=== PATIENT | male | born 1950 | race Caucasian/White ===

== ENCOUNTER 2016-09-30 12:22 | Inpatient (IN) | payer MEDICARE, OTHER ==
[~2016-09-30] VITALS: Ht 170.2 cm; Wt 94.9 kg
[~2016-09-30 12:22] MED LIST: ASPI-825 PO; ATOR40TA28 PO; BENZ1TAB10 PO; CARV25 PO; FURO40 PO; LEVO500 PO; LISI-661 PO; RISP4 PO; SPIR50 PO
[2016-09-30] MEDS ORDERED: AMLO-512 PO (14:13)
[2016-09-30] MEDS ORDERED: CARV25 PO (14:13)
[2016-09-30 21:56] LABS: BASOPHILS # (AUTO) 0.05 K/uL (0.00-0.20); BASOPHILS % (AUTO) 0.6 % (0.0-2.0); EOSINOPHILS # (AUTO) 0.19 K/uL (0.00-0.70); EOSINOPHILS % (AUTO) 2.38 % (1.0-6.0); HEMATOCRIT 43.6 % (41-53); HEMOGLOBIN 14.6 g/dL (13.5-17.5); LYMPHOCYTES # (AUTO) 1.2 K/uL (1.0-4.8); LYMPHOCYTES % (AUTO) 15.7 % (22.0-44.0); MEAN CORPUSCULAR HEMOGLOBIN 27.9 pg (26.0-34.0); MEAN CORPUSCULAR HGB CONC 33.4 G/dL (31.0-37.0); MEAN CORPUSCULAR VOLUME 83 fL (80-100); MONOCYTES # (AUTO) 1.1 K/uL (0.1-1.0); MONOCYTES % (AUTO) 13.9 % (2.0-9.0); NEUTROPHILS # (AUTO) 5.3 K/uL (1.8-7.7); NEUTROPHILS % (AUTO) 67.4 % (40.0-70.0); PLATELET COUNT (AUTO) 214 K/uL (150-450); RED BLOOD CELL COUNT(AUTO) 5.22 MIL/uL (4.50-5.90); WHITE BLOOD COUNT (AUTO) 7.9 K/uL (4.5-11.0)
[2016-09-30] MEDS ORDERED: IPRATROPIUM BROMIDE 0.5 MG/2.5 ML NEB SOLUTION NEB ONE (22:00)
[2016-09-30] MEDS ORDERED: ASPIRIN 325 MG TABLET PO ONE (22:00)
[2016-09-30] MEDS ORDERED: ALBUTEROL SULFATE 5 MG/ML 20 ML NEB SOLN [BULK] NEB ONE (22:00)
[2016-09-30] MEDS ORDERED: FUROSEMIDE 40 MG/4 ML VIAL IVP ONE (22:00)
[2016-09-30 22:09] LABS: INR 1.1 (0.9-1.1); PROTHROMBIN TIME 11.2 SEC (9.4-11.6)
[2016-09-30 22:15] LABS: ANION GAP 7 mmol/L (8-16); CALCIUM, TOTAL 8.4 mg/dL (8.8-10.5); CARBON DIOXIDE 25 mmol/L (22-29); CHLORIDE 102 mmol/L (98-107); CREATININE 1.04 mg/dL (0.60-1.30); GLOMERULAR FILTR. RATE CALC > 60 mL/min (>60); POTASSIUM 3.3 mmol/L (3.5-5.1); SODIUM SERUM 134 mmol/L (136-145); UREA NITROGEN, BLOOD 11 mg/dL (7-18)
[2016-09-30 22:19] LABS: ALANINE AMINOTRANSFERASE 10 U/L (12-78); ALBUMIN 3.5 g/dL (3.4-5.0); ASPARTATE AMINOTRANSFERASE 15 U/L (15-37); BILIRUBIN,TOTAL 0.8 mg/dL (0.1-1.0); CREATINE KINASE, TOTAL 66 U/L (39-308); TOTAL PROTEIN, SERUM 7.6 g/dL (6.4-8.2)
[2016-09-30 22:20] LABS: B-TYPE NATRIURETIC PEPTIDE 342 pg/mL (0-100)
[2016-09-30] MEDS ORDERED: ACETAMINOPHEN 325 MG TABLET PO PRN (23:30)
[2016-09-30] MEDS ORDERED: 0.9% SODIUM CHLORIDE 10 ML SYRINGE IVP PRN (23:30)
[2016-09-30] MEDS ORDERED: ONDANSETRON HCL 4 MG/2 ML VIAL IVP PRN ×2 (23:30→23:45)
[2016-09-30] MEDS ORDERED: ALBUTEROL SULFATE 2.5 MG/0.5 ML NEB SOLUTION NEB PRN (23:45)
[2016-09-30] MEDS ORDERED: HEPARIN SODIUM,PORCINE 5,000 UNITS/ML VIAL SQ SCH (23:45)
[2016-09-30] MEDS ORDERED: IPRATROPIUM BROMIDE 0.5 MG/2.5 ML NEB SOLUTION NEB PRN (23:45)
[2016-09-30] MEDS ORDERED: MAGNESIUM HYDROXIDE SUSPENSION 30 ML UDCUP PO PRN (23:45)
[2016-09-30] MEDS ORDERED: BISACODYL 10 MG RECTAL RECTAL SUPPOSITORY PR PRN (23:45)
[2016-09-30] MEDS ORDERED: ZOLPIDEM TARTRATE 5 MG TABLET PO PRN (23:45)
[2016-10-01] MEDS ORDERED: HydrALAZINE HCL 25 MG TABLET PO PRN
[2016-10-01] MEDS ORDERED: POTASSIUM CHLORIDE 20 MEQ ER TABLET PO ONE
[2016-10-01] MEDS ORDERED: NITROGLYCERIN 2% (1 GM=INCH) PACKET TP ONE
[2016-10-01] MEDS: LEVOFLOXACIN 500 MG/D5% WATER 100 ML IV SCH (00:41)
[2016-10-01 05:16] LABS: APPEARANCE,URINE CLEAR (CLEAR); GLUCOSE, URINE (UA) NEGATIVE (NEGATIVE); KETONES,URINE NEGATIVE (NEGATIVE); LEUKOCYTE ESTERASE ,URINE NEGATIVE (NEGATIVE); OCCULT BLOOD,URINE NEGATIVE (NEGATIVE); PROTEIN,URINE NEGATIVE (NEGATIVE)
[2016-10-01 05:17] LABS: ADD UA MICROSCOPIC NO
[2016-10-01 06:49] LABS: BASOPHILS % (AUTO) 0.3 % (0.0-2.0); EOSINOPHILS % (AUTO) 1.9 % (1.0-6.0); HEMATOCRIT 43.2 % (41-53); LYMPHOCYTES % (AUTO) 12.4 % (22.0-44.0); MEAN CORPUSCULAR HEMOGLOBIN 27.2 pg (26.0-34.0); MEAN CORPUSCULAR HGB CONC 32.4 G/dL (31.0-37.0); MEAN CORPUSCULAR VOLUME 84 fL (80-100); MONOCYTES # (AUTO) 0.9 K/uL (0.1-1.0); MONOCYTES % (AUTO) 10.7 % (2.0-9.0); NEUTROPHILS # (AUTO) 6.1 K/uL (1.8-7.7); NEUTROPHILS % (AUTO) 74.7 % (40.0-70.0); PLATELET COUNT (AUTO) 212 K/uL (150-450); RED BLOOD CELL COUNT(AUTO) 5.14 MIL/uL (4.50-5.90); RED CELL DISTRIBUTION WIDTH 14.5 % (11.5-14.5); WHITE BLOOD COUNT (AUTO) 8.2 K/uL (4.5-11.0)
[2016-10-01 06:54] LABS: HEMOGLOBIN A1C 5.5 % (4.5-6.2)
[2016-10-01 07:22] LABS: ALANINE AMINOTRANSFERASE 8 U/L (12-78); ALBUMIN 3.3 g/dL (3.4-5.0); ANION GAP 10 mmol/L (8-16); ASPARTATE AMINOTRANSFERASE 11 U/L (15-37); BILIRUBIN,TOTAL 0.6 mg/dL (0.1-1.0); CALCIUM, TOTAL 8.3 mg/dL (8.8-10.5); CARBON DIOXIDE 26 mmol/L (22-29); CHLORIDE 104 mmol/L (98-107); CHOL/HDL RATIO 3.5 (4.2-7.3); CREATININE 0.88 mg/dL (0.60-1.30); GLOMERULAR FILTR. RATE CALC > 60 mL/min (>60); POTASSIUM 3.4 mmol/L (3.5-5.1); SODIUM SERUM 140 mmol/L (136-145); THYROID STIMULATING HORMONE 2.36 uIU/mL (0.36-3.74); TOTAL PROTEIN, SERUM 7.1 g/dL (6.4-8.2); UREA NITROGEN, BLOOD 10 mg/dL (7-18)
[2016-10-01 08:47] VITALS: BP 147/87
[2016-10-01] MEDS: PANTOPRAZOLE SODIUM 40 MG DR TABLET PO SCH (08:54)
[2016-10-01] MEDS: ASPIRIN 81 MG CHEWABLE TABLET PO SCH (08:55)
[2016-10-01] MEDS: FUROSEMIDE 20 MG/2 ML VIAL IVP SCH ×2 (08:55→22:43)
[2016-10-01] MEDS: CARVEDILOL 12.5 MG TABLET PO SCH ×2 (08:56→22:43)
[2016-10-01] MEDS: ATORVASTATIN CALCIUM 40 MG TABLET PO SCH (08:56)
[2016-10-01] MEDS: SPIRONOLACTONE 25 MG TABLET PO SCH (08:56)
[2016-10-01] MEDS: LISINOPRIL 10 MG TABLET PO SCH ×2 (08:57→22:43)
[2016-10-01] MEDS: HEPARIN SODIUM,PORCINE 5,000 UNITS/ML VIAL SQ SCH ×2 (08:57→23:26)
[2016-10-01 09:30] LABS: BASOPHILS # (AUTO) 0.01 K/uL (0.00-0.20); BASOPHILS % (AUTO) 0.2 % (0.0-2.0); EOSINOPHILS # (AUTO) 0.07 K/uL (0.00-0.70); EOSINOPHILS % (AUTO) 0.89 % (1.0-6.0); HEMATOCRIT 45.3 % (41-53); LYMPHOCYTES # (AUTO) 0.8 K/uL (1.0-4.8); LYMPHOCYTES % (AUTO) 10.7 % (22.0-44.0); MEAN CORPUSCULAR HEMOGLOBIN 27.7 pg (26.0-34.0); MEAN CORPUSCULAR HGB CONC 33.1 G/dL (31.0-37.0); MEAN CORPUSCULAR VOLUME 84 fL (80-100); MONOCYTES # (AUTO) 0.5 K/uL (0.1-1.0); NEUTROPHILS # (AUTO) 6.1 K/uL (1.8-7.7); NEUTROPHILS % (AUTO) 81.2 % (40.0-70.0); PLATELET COUNT (AUTO) 208 K/uL (150-450); RED BLOOD CELL COUNT(AUTO) 5.41 MIL/uL (4.50-5.90); RED CELL DISTRIBUTION WIDTH 14.8 % (11.5-14.5); WHITE BLOOD COUNT (AUTO) 7.5 K/uL (4.5-11.0)
[2016-10-01 09:43] LABS: ANION GAP 13 mmol/L (8-16); CALCIUM, TOTAL 8.5 mg/dL (8.8-10.5); CARBON DIOXIDE 25 mmol/L (22-29); CHLORIDE 103 mmol/L (98-107); CREATININE 1.01 mg/dL (0.60-1.30); GLOMERULAR FILTR. RATE CALC > 60 mL/min (>60); POTASSIUM 3.5 mmol/L (3.5-5.1); SODIUM SERUM 141 mmol/L (136-145); UREA NITROGEN, BLOOD 12 mg/dL (7-18)
[2016-10-01 17:50] VITALS: BP 125/89
[2016-10-01 22:15] VITALS: BP 104/56
[2016-10-01] MEDS: CHOLECALCIFEROL (VIT D3) 2,000 UNITS TABLET PO SCH (22:42)
[2016-10-02] VITALS (7 sets, daily range): BP systolic 94–117; BP diastolic 69–76
[2016-10-02] MEDS ORDERED: SODIUM CHLORIDE 0.9% 250 ML IV ONE (02:18)
[2016-10-02] MEDS: LEVOFLOXACIN 500 MG/D5% WATER 100 ML IV SCH (02:35)
[2016-10-02] MEDS ORDERED: INFLUENZA VIRUS VACCINE QVS 2016-17 (3YR+)/PF 60 MCG/0.5 ML SYRINGE IM ONE (06:00)
[2016-10-02] MEDS ORDERED: -PHARMACY VACCINE NOTE- MISC ONE ×2 (06:00)
[2016-10-02 06:42] LABS: BASOPHILS % (AUTO) 0.4 % (0.0-2.0); EOSINOPHILS % (AUTO) 3.6 % (1.0-6.0); HEMATOCRIT 43.8 % (41-53); HEMOGLOBIN 14.1 g/dL (13.5-17.5); LYMPHOCYTES # (AUTO) 1.2 K/uL (1.0-4.8); LYMPHOCYTES % (AUTO) 13.7 % (22.0-44.0); MEAN CORPUSCULAR HEMOGLOBIN 27.2 pg (26.0-34.0); MEAN CORPUSCULAR HGB CONC 32.1 G/dL (31.0-37.0); MEAN CORPUSCULAR VOLUME 85 fL (80-100); MONOCYTES # (AUTO) 0.9 K/uL (0.1-1.0); MONOCYTES % (AUTO) 10.6 % (2.0-9.0); NEUTROPHILS # (AUTO) 6.1 K/uL (1.8-7.7); NEUTROPHILS % (AUTO) 71.7 % (40.0-70.0); PLATELET COUNT (AUTO) 227 K/uL (150-450); RED BLOOD CELL COUNT(AUTO) 5.16 MIL/uL (4.50-5.90); RED CELL DISTRIBUTION WIDTH 14.6 % (11.5-14.5); WHITE BLOOD COUNT (AUTO) 8.6 K/uL (4.5-11.0)
[2016-10-02 07:00] LABS: ANION GAP 11 mmol/L (8-16); CALCIUM, TOTAL 8.5 mg/dL (8.8-10.5); CARBON DIOXIDE 25 mmol/L (22-29); CHLORIDE 104 mmol/L (98-107); CREATININE 1.08 mg/dL (0.60-1.30); GLOMERULAR FILTR. RATE CALC > 60 mL/min (>60); POTASSIUM 3.7 mmol/L (3.5-5.1); SODIUM SERUM 140 mmol/L (136-145); UREA NITROGEN, BLOOD 16 mg/dL (7-18)
[2016-10-02] MEDS: PANTOPRAZOLE SODIUM 40 MG DR TABLET PO SCH (08:09)
[2016-10-02] MEDS: ATORVASTATIN CALCIUM 40 MG TABLET PO SCH (08:09)
[2016-10-02] MEDS: CARVEDILOL 12.5 MG TABLET PO SCH ×2 (08:09→21:04)
[2016-10-02] MEDS: ASPIRIN 81 MG CHEWABLE TABLET PO SCH (08:09)
[2016-10-02] MEDS: CHOLECALCIFEROL (VIT D3) 2,000 UNITS TABLET PO SCH ×2 (08:10→21:04)
[2016-10-02] MEDS: SPIRONOLACTONE 25 MG TABLET PO SCH (08:10)
[2016-10-02] MEDS: HEPARIN SODIUM,PORCINE 5,000 UNITS/ML VIAL SQ SCH ×2 (08:13→21:05)
[2016-10-02] MEDS: FUROSEMIDE 20 MG/2 ML VIAL IVP SCH ×2 (08:13→21:04)
[2016-10-02] MEDS: LISINOPRIL 10 MG TABLET PO SCH ×2 (08:21→21:04)
[2016-10-02 08:23] LABS: B-TYPE NATRIURETIC PEPTIDE 192 pg/mL (0-100)
[2016-10-02] MEDS ORDERED: PALIPERIDONE PALMITATE 234 MG/1.5 ML SYRINGE IM SCH (12:00)
[2016-10-02] MEDS: BENZTROPINE MESYLATE 1 MG TABLET PO SCH (21:04)
[2016-10-03] VITALS (7 sets, daily range): BP systolic 90–108; BP diastolic 58–71
[2016-10-03 06:36] LABS: BASOPHILS # (AUTO) 0.04 K/uL (0.00-0.20); BASOPHILS % (AUTO) 0.5 % (0.0-2.0); EOSINOPHILS # (AUTO) 0.26 K/uL (0.00-0.70); EOSINOPHILS % (AUTO) 3.15 % (1.0-6.0); HEMATOCRIT 40.9 % (41-53); HEMOGLOBIN 13.6 g/dL (13.5-17.5); LYMPHOCYTES # (AUTO) 1.5 K/uL (1.0-4.8); LYMPHOCYTES % (AUTO) 18.4 % (22.0-44.0); MEAN CORPUSCULAR HEMOGLOBIN 27.8 pg (26.0-34.0); MEAN CORPUSCULAR HGB CONC 33.3 G/dL (31.0-37.0); MEAN CORPUSCULAR VOLUME 84 fL (80-100); MONOCYTES # (AUTO) 0.8 K/uL (0.1-1.0); NEUTROPHILS # (AUTO) 5.7 K/uL (1.8-7.7); PLATELET COUNT (AUTO) 229 K/uL (150-450); RED CELL DISTRIBUTION WIDTH 14.9 % (11.5-14.5); WHITE BLOOD COUNT (AUTO) 8.3 K/uL (4.5-11.0)
[2016-10-03 06:51] LABS: CALCIUM, TOTAL 8.7 mg/dL (8.8-10.5); CREATININE 1.28 mg/dL (0.60-1.30); POTASSIUM 3.5 mmol/L (3.5-5.1)
[2016-10-03] MEDS: LISINOPRIL 10 MG TABLET PO SCH ×2 (09:00→21:00)
[2016-10-03] MEDS: CARVEDILOL 12.5 MG TABLET PO SCH (09:00)
[2016-10-03] MEDS: CHOLECALCIFEROL (VIT D3) 2,000 UNITS TABLET PO SCH ×2 (09:02→21:39)
[2016-10-03] MEDS: FUROSEMIDE 20 MG/2 ML VIAL IVP SCH (09:03)
[2016-10-03] MEDS: PANTOPRAZOLE SODIUM 40 MG DR TABLET PO SCH (09:03)
[2016-10-03] MEDS: ASPIRIN 81 MG CHEWABLE TABLET PO SCH (09:03)
[2016-10-03] MEDS: BENZTROPINE MESYLATE 1 MG TABLET PO SCH ×2 (09:03→21:39)
[2016-10-03] MEDS: SPIRONOLACTONE 25 MG TABLET PO SCH (09:03)
[2016-10-03] MEDS: ATORVASTATIN CALCIUM 40 MG TABLET PO SCH (09:03)
[2016-10-03] MEDS: HEPARIN SODIUM,PORCINE 5,000 UNITS/ML VIAL SQ SCH ×2 (09:04→21:39)
[2016-10-03] MEDS: CARVEDILOL 6.25 MG TABLET PO SCH (21:00)
[2016-10-03] MEDS: FUROSEMIDE 20 MG TABLET PO SCH (21:00)
[2016-10-03] MEDS: OXYGEN THERAPY IH SCH (21:36)
[2016-10-04 05:45] VITALS: BP 126/64
[2016-10-04] MEDS: HEPARIN SODIUM,PORCINE 5,000 UNITS/ML VIAL SQ SCH (08:16)
[2016-10-04] MEDS: BENZTROPINE MESYLATE 1 MG TABLET PO SCH (08:16)
[2016-10-04] MEDS: ATORVASTATIN CALCIUM 40 MG TABLET PO SCH (08:16)
[2016-10-04] MEDS: CHOLECALCIFEROL (VIT D3) 2,000 UNITS TABLET PO SCH (08:17)
[2016-10-04] MEDS: PANTOPRAZOLE SODIUM 40 MG DR TABLET PO SCH (08:17)
[2016-10-04] MEDS: ASPIRIN 81 MG CHEWABLE TABLET PO SCH (08:17)
[2016-10-04] MEDS: CARVEDILOL 6.25 MG TABLET PO SCH (08:20)
[2016-10-04] MEDS: OXYGEN THERAPY IH SCH (08:21)
[2016-10-04 08:27] VITALS: BP 112/62
[2016-10-04] MEDS: LISINOPRIL 10 MG TABLET PO SCH (08:29)
[2016-10-04] MEDS: SPIRONOLACTONE 25 MG TABLET PO SCH (09:00)
[2016-10-04] MEDS: FUROSEMIDE 20 MG TABLET PO SCH (09:00)
[2016-10-04 11:07] VITALS: BP 99/64
[2016-10-04] MEDS ORDERED: CARVEDILOL 3.125 MG TABLET PO SCH (21:00)
[2016-10-05] MEDS ORDERED: LISINOPRIL 10 MG TABLET PO SCH (09:00)
== END 2016-10-04 15:25 | DRG 291 ==
LOC: EMS 12:24 → AHU 10-01 07:24 → 5N 10-01 23:15
PROVIDERS: ADMIT Internal Medicine Geriatric Medicine; ATTEND Internal Medicine Geriatric Medicine
PROC: 4B02XTZ Measurement of Cardiac Defibrillator, External Approach (ICD-10-PCS; principal; 2016-10-02)
PROC: 3E0234Z Introduction of Serum, Toxoid and Vaccine into Muscle, Percutaneous Approach (ICD-10-PCS; 2016-10-02)
DX: I13.0 Hypertensive heart and chronic kidney disease with heart failure and stage 1 through stage 4 chronic kidney disease, or unspecified chronic kidney disease (principal); I50.23 Acute on chronic systolic (congestive) heart failure; F20.0 Paranoid schizophrenia; I42.9 Cardiomyopathy, unspecified; E66.01 Morbid (severe) obesity due to excess calories; N18.9 Chronic kidney disease, unspecified; D35.01 Benign neoplasm of right adrenal gland; E78.00 Pure hypercholesterolemia, unspecified; E87.6 Hypokalemia; E55.9 Vitamin D deficiency, unspecified; E78.5 Hyperlipidemia, unspecified; F31.9 Bipolar disorder, unspecified; I25.10 Atherosclerotic heart disease of native coronary artery without angina pectoris; K40.90 Unilateral inguinal hernia, without obstruction or gangrene, not specified as recurrent; K57.30 Diverticulosis of large intestine without perforation or abscess without bleeding; N40.0 Benign prostatic hyperplasia without lower urinary tract symptoms; Z79.899 Other long term (current) drug therapy; Z79.82 Long term (current) use of aspirin; Z95.810 Presence of automatic (implantable) cardiac defibrillator; Z91.19 Patient's noncompliance with other medical treatment and regimen; Z68.32 Body mass index [BMI] 32.0-32.9, adult; Z23 Encounter for immunization
CPT/HCPCS: 71250; 74176; 82306; 83036; 83735; 84145; 84439; 84443; 90471; 93005; 93306; 96374; 99285; J1644; J1940; J1956; J7050

== ENCOUNTER 2019-08-27 19:29 | Inpatient (IN) | payer MEDICARE, OTHER ==
[~2019-08-27] VITALS: Ht 165.1 cm; Wt 89.5 kg
[~2019-08-27 19:29] MED LIST changes: +AMLO10TA7 PO; -BENZ1TAB10 PO; -LEVO500 PO; -RISP4 PO
[2019-08-27] MEDS ORDERED: RISP2 PO (20:07)
[2019-08-27] MEDS ORDERED: FURO40 PO (20:07)
[2019-08-27] MEDS ORDERED: APIX5TAB PO (20:07)
[2019-08-27] MEDS ORDERED: CARV6 PO (20:07)
[2019-08-27] MEDS ORDERED: LISI-660 PO (20:07)
[2019-08-27 20:22] LABS: BASOPHILS % (AUTO) 0.8 % (0.0-2.0); EOSINOPHILS % (AUTO) 0.9 % (1.0-6.0); HEMATOCRIT 39.8 % (41-53); HEMOGLOBIN 12.7 g/dL (13.5-17.5); LYMPHOCYTES % (AUTO) 13.2 % (22.0-44.0); MEAN CORPUSCULAR HEMOGLOBIN 24.8 pg (26.0-34.0); MEAN CORPUSCULAR VOLUME 78 fL (80-100); MONOCYTES # (AUTO) 0.8 K/uL (0.1-1.0); MONOCYTES % (AUTO) 10.6 % (2.0-9.0); NEUTROPHILS # (AUTO) 5.9 K/uL (1.8-7.7); NEUTROPHILS % (AUTO) 74.5 % (40.0-70.0); PLATELET COUNT (AUTO) 268 K/uL (150-450); RED BLOOD CELL COUNT(AUTO) 5.14 MIL/uL (4.50-5.90)
[2019-08-27 20:31] LABS: ANION GAP 10 mmol/L (8-16); CALCIUM, TOTAL 8.8 mg/dL (8.8-10.5); CARBON DIOXIDE 26 mmol/L (22-29); CHLORIDE 105 mmol/L (98-107); GLOMERULAR FILTR. RATE CALC > 60 mL/min (>60); GLUCOSE,RANDOM 96 mg/dL (70-110); POTASSIUM 4.1 mmol/L (3.5-5.1); SODIUM SERUM 141 mmol/L (136-145); UREA NITROGEN, BLOOD 21 mg/dL (7-18)
[2019-08-27 20:37] LABS: ALANINE AMINOTRANSFERASE 60 U/L (12-78); ALBUMIN 3.5 g/dL (3.4-5.0); ALKALINE PHOSPHATASE 77 U/L (46-116); ASPARTATE AMINOTRANSFERASE 44 U/L (15-37); TOTAL PROTEIN, SERUM 7.3 g/dL (6.4-8.2)
[2019-08-27 20:39] LABS: B-TYPE NATRIURETIC PEPTIDE 1800 pg/mL (0-100)
[2019-08-27] MEDS ORDERED: 0.9% SODIUM CHLORIDE 5 ML NEB SOLUTION NEB ONE (22:37)
[2019-08-27] MEDS ORDERED: MAGNESIUM SULFATE 2 GM/WATER 50 ML IV ONE (22:45)
[2019-08-27] MEDS ORDERED: MethylPREDNISolone SOD SUCC 125 MG/2 ML VIAL IVP ONE (22:45)
[2019-08-27] MEDS ORDERED: ALBUTEROL SULFATE 5 MG/ML 20 ML NEB SOLN [BULK] NEB ONE (22:45)
[2019-08-27 22:49] LABS: CREATINE KINASE, TOTAL ONLY 200 U/L (39-308); LIPASE 54 U/L (73-393)
[2019-08-27 22:54] LABS: INR 1.3 (0.9-1.1); PROTHROMBIN TIME 13.4 SEC (9.4-11.6)
[2019-08-27] MEDS ORDERED: FUROSEMIDE 40 MG/4 ML VIAL IVP ONE (23:15)
[2019-08-28 00:12] LABS: INFLUENZA TYPE A NEGATIVE FOR TYPE A (NEGATIVE); INFLUENZA TYPE B NEGATIVE FOR TYPE B (NEGATIVE)
[2019-08-28 01:48] VITALS: BP 129/95
[2019-08-28 04:20] VITALS: BP_SYST 112; BP_SYST 130; BP_DIAS 56; BP_DIAS 90
[2019-08-28] MEDS ORDERED: ALBUTEROL SULFATE 2.5 MG/0.5 ML NEB SOLUTION NEB PRN (04:30)
[2019-08-28] MEDS ORDERED: PNEUMOCOCCAL VACCINE POLYVALENT 0.5 ML VIAL [PPSV23] IM ONE (04:30)
[2019-08-28] MEDS ORDERED: INFLUENZA VIRUS VACCINE QVS 2019-20 (3YR+)/PF 60 MCG/0.5 ML SYRINGE IM ONE (04:30)
[2019-08-28] MEDS ORDERED: 0.9% SODIUM CHLORIDE 10 ML SYRINGE IVP PRN (04:30)
[2019-08-28] MEDS ORDERED: ACETAMINOPHEN 325 MG TABLET PO PRN (04:30)
[2019-08-28] MEDS ORDERED: OxyCODONE HCL/ACETAMINOPHEN 5-325 MG TABLET PO PRN (04:30)
[2019-08-28] MEDS ORDERED: MAGNESIUM HYDROXIDE SUSPENSION 30 ML UDCUP PO PRN (04:30)
[2019-08-28] MEDS ORDERED: ONDANSETRON HCL 4 MG/2 ML VIAL IVP PRN (04:30)
[2019-08-28] MEDS: OxyCODONE HCL/ACETAMINOPHEN 5-325 MG TABLET PO PRN (05:06)
[2019-08-28 07:45] LABS: ANION GAP 10 mmol/L (8-16); CALCIUM, TOTAL 8.2 mg/dL (8.8-10.5); CARBON DIOXIDE 26 mmol/L (22-29); CHLORIDE 103 mmol/L (98-107); CREATININE 0.87 mg/dL (0.60-1.30); GLOMERULAR FILTR. RATE CALC > 60 mL/min (>60); GLUCOSE,RANDOM 152 mg/dL (70-110); POTASSIUM 3.4 mmol/L (3.5-5.1); SODIUM SERUM 139 mmol/L (136-145); UREA NITROGEN, BLOOD 16 mg/dL (7-18)
[2019-08-28] MEDS: ALBUTEROL SULFATE 2.5 MG/0.5 ML NEB SOLUTION NEB SCH ×3 (07:55→20:05)
[2019-08-28] MEDS: IPRATROPIUM BROMIDE 0.5 MG/2.5 ML NEB SOLUTION NEB SCH ×3 (07:55→20:05)
[2019-08-28 08:09] VITALS: BP 143/97
[2019-08-28] MEDS: APIXABAN 5 MG TABLET PO SCH ×2 (08:57→22:36)
[2019-08-28] MEDS: RisperiDONE 2 MG TABLET PO SCH (08:57)
[2019-08-28] MEDS: FAMOTIDINE 10 MG/ML 2 ML VIAL IVP SCH (08:57)
[2019-08-28] MEDS: DOCUSATE SODIUM 100 MG CAPSULE PO SCH ×2 (08:57→22:36)
[2019-08-28] MEDS: FUROSEMIDE 40 MG/4 ML VIAL IVP SCH ×2 (08:57→22:35)
[2019-08-28] MEDS: CARVEDILOL 6.25 MG TABLET PO SCH (08:57)
[2019-08-28] MEDS: MethylPREDNISolone SOD SUCC 40 MG/ML VIAL IVP SCH ×2 (08:57→22:36)
[2019-08-28] MEDS: LISINOPRIL 5 MG TABLET PO SCH (08:58)
[2019-08-28] MEDS ORDERED: POTASSIUM CHLORIDE 20 MEQ ER TABLET PO ONE (10:45)
[2019-08-28 11:28] VITALS: BP 127/77
[2019-08-28 16:19] VITALS: BP 109/71
[2019-08-28 19:40] VITALS: BP 114/72
[2019-08-29] VITALS (7 sets, daily range): BP systolic 110–126; BP diastolic 54–75
[2019-08-29] MEDS: ALBUTEROL SULFATE 2.5 MG/0.5 ML NEB SOLUTION NEB SCH ×4 (02:07→19:38)
[2019-08-29] MEDS: IPRATROPIUM BROMIDE 0.5 MG/2.5 ML NEB SOLUTION NEB SCH ×4 (02:07→19:38)
[2019-08-29 07:18] LABS: BASOPHILS % (AUTO) 0.1 % (0.0-2.0); EOSINOPHILS % (AUTO) 0 % (1.0-6.0); HEMOGLOBIN 12.4 g/dL (13.5-17.5); LYMPHOCYTES # (AUTO) 0.3 K/uL (1.0-4.8); LYMPHOCYTES % (AUTO) 3.1 % (22.0-44.0); MEAN CORPUSCULAR HEMOGLOBIN 24.7 pg (26.0-34.0); MEAN CORPUSCULAR HGB CONC 32.5 G/dL (31.0-37.0); MEAN CORPUSCULAR VOLUME 76 fL (80-100); MONOCYTES # (AUTO) 0.3 K/uL (0.1-1.0); MONOCYTES % (AUTO) 2.9 % (2.0-9.0); NEUTROPHILS # (AUTO) 8.8 K/uL (1.8-7.7); PLATELET COUNT (AUTO) 256 K/uL (150-450); RED CELL DISTRIBUTION WIDTH 16.6 % (11.5-14.5)
[2019-08-29 07:19] LABS: NEUTROPHILS % (AUTO) 93.9 % (40.0-70.0)
[2019-08-29 07:29] LABS: ANION GAP 10 mmol/L (8-16); CALCIUM, TOTAL 8.4 mg/dL (8.8-10.5); CARBON DIOXIDE 27 mmol/L (22-29); CHLORIDE 103 mmol/L (98-107); CREATININE 0.92 mg/dL (0.60-1.30); GLOMERULAR FILTR. RATE CALC > 60 mL/min (>60); GLUCOSE,RANDOM 123 mg/dL (70-110); POTASSIUM 3.9 mmol/L (3.5-5.1); SODIUM SERUM 140 mmol/L (136-145); UREA NITROGEN, BLOOD 26 mg/dL (7-18)
[2019-08-29] MEDS: MethylPREDNISolone SOD SUCC 40 MG/ML VIAL IVP SCH ×2 (08:05→21:16)
[2019-08-29] MEDS: FAMOTIDINE 10 MG/ML 2 ML VIAL IVP SCH (08:05)
[2019-08-29] MEDS: FUROSEMIDE 40 MG/4 ML VIAL IVP SCH (08:05)
[2019-08-29] MEDS: APIXABAN 5 MG TABLET PO SCH ×2 (08:06→21:16)
[2019-08-29] MEDS: LISINOPRIL 5 MG TABLET PO SCH (08:07)
[2019-08-29] MEDS: CARVEDILOL 6.25 MG TABLET PO SCH (08:07)
[2019-08-29] MEDS: RisperiDONE 2 MG TABLET PO SCH (08:07)
[2019-08-29] MEDS: DOCUSATE SODIUM 100 MG CAPSULE PO SCH ×2 (08:07→21:16)
[2019-08-30] VITALS (7 sets, daily range): BP systolic 106–136; BP diastolic 68–84
[2019-08-30] MEDS ORDERED: MORPHINE SULFATE 2 MG/ML SYRINGE IVP PRN (00:15)
[2019-08-30] MEDS ORDERED: DIGOXIN 250 MCG/ML 2 ML AMP IVP ONE (00:15)
[2019-08-30] MEDS: ALBUTEROL SULFATE 2.5 MG/0.5 ML NEB SOLUTION NEB SCH ×4 (02:16→21:31)
[2019-08-30] MEDS: IPRATROPIUM BROMIDE 0.5 MG/2.5 ML NEB SOLUTION NEB SCH ×4 (02:16→21:31)
[2019-08-30 06:38] LABS: BASOPHILS % (AUTO) 0.1 % (0.0-2.0); EOSINOPHILS % (AUTO) 0 % (1.0-6.0); HEMATOCRIT 37.8 % (41-53); HEMOGLOBIN 12.6 g/dL (13.5-17.5); LYMPHOCYTES # (AUTO) 0.3 K/uL (1.0-4.8); LYMPHOCYTES % (AUTO) 2.8 % (22.0-44.0); MEAN CORPUSCULAR HEMOGLOBIN 25.3 pg (26.0-34.0); MEAN CORPUSCULAR HGB CONC 33.3 G/dL (31.0-37.0); MEAN CORPUSCULAR VOLUME 76 fL (80-100); MONOCYTES # (AUTO) 0.3 K/uL (0.1-1.0); NEUTROPHILS # (AUTO) 9.5 K/uL (1.8-7.7); PLATELET COUNT (AUTO) 258 K/uL (150-450); RED BLOOD CELL COUNT(AUTO) 4.97 MIL/uL (4.50-5.90); RED CELL DISTRIBUTION WIDTH 16.9 % (11.5-14.5)
[2019-08-30 06:52] LABS: ANION GAP 9 mmol/L (8-16); CALCIUM, TOTAL 8.5 mg/dL (8.8-10.5); CARBON DIOXIDE 26 mmol/L (22-29); CHLORIDE 102 mmol/L (98-107); CREATININE 0.82 mg/dL (0.60-1.30); GLOMERULAR FILTR. RATE CALC > 60 mL/min (>60); GLUCOSE,RANDOM 123 mg/dL (70-110); SODIUM SERUM 137 mmol/L (136-145); UREA NITROGEN, BLOOD 29 mg/dL (7-18)
[2019-08-30 06:55] LABS: NEUTROPHILS % (AUTO) 94.1 % (40.0-70.0)
[2019-08-30] MEDS: LISINOPRIL 5 MG TABLET PO SCH (08:18)
[2019-08-30] MEDS: APIXABAN 5 MG TABLET PO SCH ×2 (08:18→20:49)
[2019-08-30] MEDS: CARVEDILOL 6.25 MG TABLET PO SCH (08:18)
[2019-08-30] MEDS: RisperiDONE 2 MG TABLET PO SCH (08:18)
[2019-08-30] MEDS: MethylPREDNISolone SOD SUCC 40 MG/ML VIAL IVP SCH ×2 (08:19→20:49)
[2019-08-30] MEDS: FUROSEMIDE 40 MG TABLET PO SCH (08:19)
[2019-08-30] MEDS: FAMOTIDINE 10 MG/ML 2 ML VIAL IVP SCH (08:19)
[2019-08-30] MEDS: DOCUSATE SODIUM 100 MG CAPSULE PO SCH ×2 (08:20→20:48)
[2019-08-31] MEDS: ALBUTEROL SULFATE 2.5 MG/0.5 ML NEB SOLUTION NEB SCH ×4 (02:53→19:51)
[2019-08-31] MEDS: IPRATROPIUM BROMIDE 0.5 MG/2.5 ML NEB SOLUTION NEB SCH ×4 (02:54→19:51)
[2019-08-31 04:30] VITALS: BP 123/83
[2019-08-31 07:06] LABS: EOSINOPHILS % (AUTO) 0 % (1.0-6.0); HEMATOCRIT 37.7 % (41-53); HEMOGLOBIN 12.3 g/dL (13.5-17.5); LYMPHOCYTES # (AUTO) 0.3 K/uL (1.0-4.8); LYMPHOCYTES % (AUTO) 3.6 % (22.0-44.0); MEAN CORPUSCULAR HEMOGLOBIN 24.6 pg (26.0-34.0); MEAN CORPUSCULAR HGB CONC 32.5 G/dL (31.0-37.0); MEAN CORPUSCULAR VOLUME 76 fL (80-100); MONOCYTES # (AUTO) 0.4 K/uL (0.1-1.0); NEUTROPHILS # (AUTO) 7.9 K/uL (1.8-7.7); PLATELET COUNT (AUTO) 235 K/uL (150-450); RED BLOOD CELL COUNT(AUTO) 4.99 MIL/uL (4.50-5.90); RED CELL DISTRIBUTION WIDTH 16.8 % (11.5-14.5)
[2019-08-31 07:07] LABS: NEUTROPHILS % (AUTO) 91.4 % (40.0-70.0)
[2019-08-31 07:26] LABS: ANION GAP 6 mmol/L (8-16); CALCIUM, TOTAL 8.2 mg/dL (8.8-10.5); CARBON DIOXIDE 28 mmol/L (22-29); CHLORIDE 102 mmol/L (98-107); CREATININE 0.93 mg/dL (0.60-1.30); GLOMERULAR FILTR. RATE CALC > 60 mL/min (>60); GLUCOSE,RANDOM 116 mg/dL (70-110); POTASSIUM 4.4 mmol/L (3.5-5.1); SODIUM SERUM 136 mmol/L (136-145); UREA NITROGEN, BLOOD 14 mg/dL (7-18)
[2019-08-31 07:31] VITALS: BP 124/93
[2019-08-31] MEDS: DOCUSATE SODIUM 100 MG CAPSULE PO SCH ×2 (09:00→21:47)
[2019-08-31] MEDS: MethylPREDNISolone SOD SUCC 40 MG/ML VIAL IVP SCH (09:31)
[2019-08-31] MEDS: METOPROLOL SUCCINATE 50 MG ER TABLET PO SCH (09:31)
[2019-08-31] MEDS: FAMOTIDINE 10 MG/ML 2 ML VIAL IVP SCH (09:32)
[2019-08-31] MEDS: APIXABAN 5 MG TABLET PO SCH ×2 (09:32→21:47)
[2019-08-31] MEDS: RisperiDONE 2 MG TABLET PO SCH (09:32)
[2019-08-31] MEDS: FUROSEMIDE 40 MG TABLET PO SCH (09:32)
[2019-08-31] MEDS: LISINOPRIL 5 MG TABLET PO SCH (09:32)
[2019-08-31 11:25] VITALS: BP 112/78
[2019-08-31] MEDS ORDERED: METO-558 PO (12:41)
[2019-08-31] MEDS ORDERED: CALCIUM CARBONATE 500 MG CHEWABLE TABLET CHEW PRN (15:30)
[2019-08-31 19:30] VITALS: BP 111/69
[2019-09-01] VITALS (7 sets, daily range): BP systolic 104–110; BP diastolic 58–79
[2019-09-01] MEDS: ALBUTEROL SULFATE 2.5 MG/0.5 ML NEB SOLUTION NEB SCH ×4 (02:23→19:59)
[2019-09-01] MEDS: IPRATROPIUM BROMIDE 0.5 MG/2.5 ML NEB SOLUTION NEB SCH ×4 (02:23→19:59)
[2019-09-01] MEDS: DOCUSATE SODIUM 100 MG CAPSULE PO SCH ×2 (09:00→20:47)
[2019-09-01] MEDS: OxyCODONE HCL/ACETAMINOPHEN 5-325 MG TABLET PO PRN ×2 (09:39→23:25)
[2019-09-01] MEDS: RisperiDONE 2 MG TABLET PO SCH (09:40)
[2019-09-01] MEDS: APIXABAN 5 MG TABLET PO SCH ×2 (09:40→20:48)
[2019-09-01] MEDS: FUROSEMIDE 40 MG TABLET PO SCH (09:40)
[2019-09-01] MEDS: METOPROLOL SUCCINATE 50 MG ER TABLET PO SCH (09:40)
[2019-09-01] MEDS: LISINOPRIL 5 MG TABLET PO SCH (09:41)
[2019-09-01] MEDS: FAMOTIDINE 10 MG/ML 2 ML VIAL IVP SCH (09:44)
[2019-09-02] MEDS: IPRATROPIUM BROMIDE 0.5 MG/2.5 ML NEB SOLUTION NEB SCH ×4 (02:00→20:00)
[2019-09-02] MEDS: ALBUTEROL SULFATE 2.5 MG/0.5 ML NEB SOLUTION NEB SCH ×4 (02:00→20:00)
[2019-09-02 04:02] VITALS: BP 98/54
[2019-09-02 08:07] VITALS: BP 103/65
[2019-09-02] MEDS ORDERED: SESTAMIBI TC99M/UD ISOTOPE 1 EA INJ INJ ONE ×2 (08:35→13:15)
[2019-09-02] MEDS: DOCUSATE SODIUM 100 MG CAPSULE PO SCH ×2 (09:00→20:31)
[2019-09-02] MEDS: LISINOPRIL 5 MG TABLET PO SCH (09:00)
[2019-09-02] MEDS: RisperiDONE 2 MG TABLET PO SCH ×2 (09:00→10:21)
[2019-09-02] MEDS: METOPROLOL SUCCINATE 50 MG ER TABLET PO SCH (09:00)
[2019-09-02] MEDS: FUROSEMIDE 40 MG TABLET PO SCH (09:00)
[2019-09-02] MEDS: APIXABAN 5 MG TABLET PO SCH ×2 (09:03→20:31)
[2019-09-02] MEDS: FAMOTIDINE 10 MG/ML 2 ML VIAL IVP SCH (09:04)
[2019-09-02 11:30] VITALS: BP 121/82
[2019-09-02] MEDS ORDERED: REGADENOSON 0.4 MG/5 ML PF SYRINGE IVP ONE ×2 (13:09→17:36)
[2019-09-02 13:16] VITALS: BP 128/74
[2019-09-02 15:52] VITALS: BP 111/58
[2019-09-02 20:09] VITALS: BP 116/78
[2019-09-03 00:09] VITALS: BP 93/55
[2019-09-03] MEDS: IPRATROPIUM BROMIDE 0.5 MG/2.5 ML NEB SOLUTION NEB SCH ×3 (02:00→14:44)
[2019-09-03] MEDS: ALBUTEROL SULFATE 2.5 MG/0.5 ML NEB SOLUTION NEB SCH ×3 (02:00→14:44)
[2019-09-03 04:44] VITALS: BP 95/61
[2019-09-03 07:27] VITALS: BP 120/67
[2019-09-03 08:08] VITALS: BP 124/85
[2019-09-03] MEDS: RisperiDONE 2 MG TABLET PO SCH (08:11)
[2019-09-03] MEDS: LISINOPRIL 5 MG TABLET PO SCH (08:11)
[2019-09-03] MEDS: FAMOTIDINE 10 MG/ML 2 ML VIAL IVP SCH (08:12)
[2019-09-03] MEDS: FUROSEMIDE 40 MG TABLET PO SCH (08:12)
[2019-09-03] MEDS: DOCUSATE SODIUM 100 MG CAPSULE PO SCH (08:12)
[2019-09-03] MEDS: APIXABAN 5 MG TABLET PO SCH (08:12)
[2019-09-03] MEDS: METOPROLOL SUCCINATE 50 MG ER TABLET PO SCH (09:00)
[2019-09-03 10:02] VITALS: BP 111/64
[2019-09-03 11:09] VITALS: BP 110/71
== END 2019-09-03 15:13 | disposition home or self-care (01) | DRG 291 ==
LOC: EMS 19:32 → 5N 23:30 → 5S 08-28 02:02
PROVIDERS: ADMIT Internal Medicine; ATTEND Internal Medicine
PROC: 3E02340 Introduction of Influenza Vaccine into Muscle, Percutaneous Approach (ICD-10-PCS; principal; 2019-08-30)
PROC: 4A02XM4 Measurement of Cardiac Total Activity, External Approach (ICD-10-PCS; 2019-09-02)
PROC: 4B02XTZ Measurement of Cardiac Defibrillator, External Approach (ICD-10-PCS; 2019-09-03)
DX: I11.0 Hypertensive heart disease with heart failure (principal); J96.01 Acute respiratory failure with hypoxia; I24.8 Other forms of acute ischemic heart disease; I47.2 Ventricular tachycardia; I50.43 Acute on chronic combined systolic (congestive) and diastolic (congestive) heart failure; D64.9 Anemia, unspecified; J44.9 Chronic obstructive pulmonary disease, unspecified; E78.00 Pure hypercholesterolemia, unspecified; E78.5 Hyperlipidemia, unspecified; F20.9 Schizophrenia, unspecified; F31.9 Bipolar disorder, unspecified; I08.1 Rheumatic disorders of both mitral and tricuspid valves; I27.20 Pulmonary hypertension, unspecified; I48.0 Paroxysmal atrial fibrillation; I49.5 Sick sinus syndrome; J98.01 Acute bronchospasm; I48.91 Unspecified atrial fibrillation; M48.10 Ankylosing hyperostosis [Forestier], site unspecified; E66.9 Obesity, unspecified; Z68.32 Body mass index [BMI] 32.0-32.9, adult; Z23 Encounter for immunization; Z95.810 Presence of automatic (implantable) cardiac defibrillator; Z79.899 Other long term (current) drug therapy
CPT/HCPCS: 71250; 78452; 83735; 87804; 90686; 90732; 93005; 93017; 93306; 94640; A9500; J1160; J1940; J2270; J2785; J2920; J2930; J3475; J3490

== ENCOUNTER 2019-10-07 19:12 | Inpatient (IN) | payer MEDICARE, OTHER ==
[~2019-10-07] VITALS: Ht 177.8 cm; Wt 92.9 kg
[~2019-10-07 19:12] MED LIST changes: -AMLO10TA7 PO; +APIX5TAB PO; -ASPI-825 PO; -ATOR40TA28 PO; -CARV25 PO; +LISI-660 PO; -LISI-661 PO; +RISP2 PO; -SPIR50 PO
[2019-10-07] MEDS ORDERED: ASPIRIN 81 MG CHEWABLE TABLET PO ONE (19:45)
[2019-10-07 20:09] LABS: BASOPHILS % (AUTO) 0.9 % (0.0-2.0); EOSINOPHILS % (AUTO) 0.9 % (1.0-6.0); HEMATOCRIT 40.2 % (41-53); LYMPHOCYTES # (AUTO) 1.2 K/uL (1.0-4.8); LYMPHOCYTES % (AUTO) 13.7 % (22.0-44.0); MEAN CORPUSCULAR HEMOGLOBIN 24.2 pg (26.0-34.0); MEAN CORPUSCULAR HGB CONC 32.4 G/dL (31.0-37.0); MEAN CORPUSCULAR VOLUME 75 fL (80-100); MONOCYTES # (AUTO) 0.7 K/uL (0.1-1.0); MONOCYTES % (AUTO) 7.8 % (2.0-9.0); NEUTROPHILS # (AUTO) 6.5 K/uL (1.8-7.7); NEUTROPHILS % (AUTO) 76.7 % (40.0-70.0); PLATELET COUNT (AUTO) 277 K/uL (150-450); RED BLOOD CELL COUNT(AUTO) 5.39 MIL/uL (4.50-5.90); RED CELL DISTRIBUTION WIDTH 19.1 % (11.5-14.5)
[2019-10-07 20:25] LABS: INR 1.1 (0.9-1.1); PROTHROMBIN TIME 10.8 SEC (9.4-11.6)
[2019-10-07 20:43] LABS: B-TYPE NATRIURETIC PEPTIDE 1240 pg/mL (0-100)
[2019-10-07 20:52] LABS: ANION GAP 9 mmol/L (8-16); CALCIUM, TOTAL 9.1 mg/dL (8.8-10.5); CARBON DIOXIDE 25 mmol/L (22-29); CHLORIDE 102 mmol/L (98-107); CREATININE 0.87 mg/dL (0.60-1.30); GLOMERULAR FILTR. RATE CALC > 60 mL/min (>60); GLUCOSE,RANDOM 96 mg/dL (70-110); POTASSIUM 3.4 mmol/L (3.5-5.1); SODIUM SERUM 136 mmol/L (136-145); UREA NITROGEN, BLOOD 12 mg/dL (7-18)
[2019-10-07 20:59] LABS: ALANINE AMINOTRANSFERASE 15 U/L (12-78); ALBUMIN 3.2 g/dL (3.4-5.0); ALKALINE PHOSPHATASE 101 U/L (46-116); ASPARTATE AMINOTRANSFERASE 12 U/L (15-37); BILIRUBIN,TOTAL 0.9 mg/dL (0.1-1.0); CREATINE KINASE, TOTAL ONLY 29 U/L (39-308); TOTAL PROTEIN, SERUM 7.5 g/dL (6.4-8.2)
[2019-10-07 21:35] LABS: LIPASE 55 U/L (73-393)
[2019-10-07] MEDS ORDERED: FUROSEMIDE 40 MG/4 ML VIAL IVP ONE (21:45)
[2019-10-07 22:44] VITALS: BP 140/97
[2019-10-08] MEDS ORDERED: -PHARMACY VACCINE NOTE- MISC ONE (01:15)
[2019-10-08] MEDS ORDERED: PNEUMOCOCCAL VACCINE POLYVALENT 0.5 ML VIAL [PPSV23] IM ONE (01:15)
[2019-10-08] MEDS ORDERED: POTASSIUM CHL 10 MEQ/WATER 50 ML IV PRN ×2 (02:45→03:45)
[2019-10-08] MEDS: POTASSIUM CHLORIDE 20 MEQ ER TABLET PO PRN (03:19)
[2019-10-08] MEDS ORDERED: MAGNESIUM HYDROXIDE SUSPENSION 30 ML UDCUP PO PRN (03:45)
[2019-10-08] MEDS ORDERED: 0.9% SODIUM CHLORIDE 10 ML SYRINGE IVP PRN (03:45)
[2019-10-08] MEDS ORDERED: POTASSIUM CHLORIDE 20 MEQ ER TABLET PO PRN (03:45)
[2019-10-08] MEDS ORDERED: ONDANSETRON HCL 4 MG/2 ML VIAL IVP PRN (03:45)
[2019-10-08] MEDS ORDERED: ACETAMINOPHEN 325 MG TABLET PO PRN (03:45)
[2019-10-08] MEDS ORDERED: OxyCODONE HCL/ACETAMINOPHEN 5-325 MG TABLET PO PRN ×2 (03:45)
[2019-10-08 04:39] VITALS: BP 116/72
[2019-10-08 07:44] VITALS: BP 129/69
[2019-10-08] MEDS: DOCUSATE SODIUM 100 MG CAPSULE PO SCH ×2 (09:00→20:14)
[2019-10-08] MEDS: APIXABAN 5 MG TABLET PO SCH ×2 (09:41→20:08)
[2019-10-08] MEDS: RisperiDONE 2 MG TABLET PO SCH (09:41)
[2019-10-08] MEDS: LISINOPRIL 5 MG TABLET PO SCH (09:41)
[2019-10-08] MEDS: FUROSEMIDE 40 MG/4 ML VIAL IVP SCH (09:42)
[2019-10-08 11:22] VITALS: BP 99/56
[2019-10-08] MEDS: LACTOBACILLUS ACIDOPHILUS/BULGARICUS GRANULES PACKET PO SCH ×2 (15:55→20:08)
[2019-10-08] MEDS: MetroNIDAZOLE 500 MG/NACL 100 ML IV SCH ×2 (15:55→23:34)
[2019-10-08 16:05] VITALS: BP 118/72
[2019-10-08 19:13] VITALS: BP 121/56
[2019-10-08 23:36] VITALS: BP 104/70
[2019-10-08] MEDS ORDERED: SODIUM CHLORIDE 0.9% 100 ML ONE (23:37)
[2019-10-09 04:14] VITALS: BP 103/70
[2019-10-09] MEDS: MetroNIDAZOLE 500 MG/NACL 100 ML IV SCH ×3 (06:42→22:06)
[2019-10-09 06:54] LABS: BASOPHILS % (AUTO) 0.4 % (0.0-2.0); HEMATOCRIT 37.5 % (41-53); HEMOGLOBIN 12.3 g/dL (13.5-17.5); LYMPHOCYTES # (AUTO) 1.5 K/uL (1.0-4.8); LYMPHOCYTES % (AUTO) 17.3 % (22.0-44.0); MEAN CORPUSCULAR HEMOGLOBIN 24.5 pg (26.0-34.0); MEAN CORPUSCULAR HGB CONC 32.9 G/dL (31.0-37.0); MEAN CORPUSCULAR VOLUME 74 fL (80-100); MONOCYTES # (AUTO) 1.1 K/uL (0.1-1.0); MONOCYTES % (AUTO) 12.4 % (2.0-9.0); NEUTROPHILS # (AUTO) 5.8 K/uL (1.8-7.7); NEUTROPHILS % (AUTO) 66.9 % (40.0-70.0); PLATELET COUNT (AUTO) 273 K/uL (150-450); RED BLOOD CELL COUNT(AUTO) 5.05 MIL/uL (4.50-5.90); RED CELL DISTRIBUTION WIDTH 19.8 % (11.5-14.5)
[2019-10-09 07:04] LABS: ANION GAP 10 mmol/L (8-16); CALCIUM, TOTAL 8.4 mg/dL (8.8-10.5); CARBON DIOXIDE 26 mmol/L (22-29); CHLORIDE 104 mmol/L (98-107); GLOMERULAR FILTR. RATE CALC > 60 mL/min (>60); GLUCOSE,RANDOM 87 mg/dL (70-110); POTASSIUM 3.3 mmol/L (3.5-5.1); SODIUM SERUM 140 mmol/L (136-145); UREA NITROGEN, BLOOD 25 mg/dL (7-18)
[2019-10-09 07:55] VITALS: BP 102/66
[2019-10-09] MEDS: FUROSEMIDE 40 MG/4 ML VIAL IVP SCH (08:27)
[2019-10-09] MEDS: LACTOBACILLUS ACIDOPHILUS/BULGARICUS GRANULES PACKET PO SCH ×3 (08:27→22:03)
[2019-10-09] MEDS: APIXABAN 5 MG TABLET PO SCH ×2 (08:27→22:03)
[2019-10-09] MEDS: RisperiDONE 2 MG TABLET PO SCH (08:27)
[2019-10-09] MEDS: LISINOPRIL 5 MG TABLET PO SCH (08:27)
[2019-10-09] MEDS: DOCUSATE SODIUM 100 MG CAPSULE PO SCH ×2 (08:34→22:03)
[2019-10-09] MEDS: ASPIRIN 81 MG CHEWABLE TABLET PO SCH (10:21)
[2019-10-09] MEDS: POTASSIUM CHLORIDE 20 MEQ ER TABLET PO PRN (10:22)
[2019-10-09 11:05] VITALS: BP 99/59
[2019-10-09 15:57] VITALS: BP 112/68
[2019-10-09 17:00] VITALS: BP 93/66
[2019-10-09 21:50] VITALS: BP 106/58
[2019-10-09] MEDS: ATORVASTATIN CALCIUM 20 MG TABLET PO SCH (22:03)
[2019-10-10] VITALS (8 sets, daily range): BP systolic 84–104; BP diastolic 50–68
[2019-10-10] MEDS: MetroNIDAZOLE 500 MG/NACL 100 ML IV SCH ×3 (07:49→22:31)
[2019-10-10] MEDS: ASPIRIN 81 MG CHEWABLE TABLET PO SCH (08:32)
[2019-10-10] MEDS: LISINOPRIL 5 MG TABLET PO SCH (08:32)
[2019-10-10] MEDS: DOCUSATE SODIUM 100 MG CAPSULE PO SCH ×2 (08:32→20:47)
[2019-10-10] MEDS: APIXABAN 5 MG TABLET PO SCH ×2 (08:32→20:45)
[2019-10-10] MEDS: FUROSEMIDE 40 MG/4 ML VIAL IVP SCH (08:32)
[2019-10-10] MEDS: LACTOBACILLUS ACIDOPHILUS/BULGARICUS GRANULES PACKET PO SCH ×3 (08:32→20:45)
[2019-10-10] MEDS: RisperiDONE 2 MG TABLET PO SCH (08:32)
[2019-10-10] MEDS ORDERED: SODIUM CHLORIDE 0.9% 250 ML IV ONE (12:30)
[2019-10-10] MEDS ORDERED: SODIUM CHLORIDE 0.9% 100 ML ONE (17:31)
[2019-10-10] MEDS: ATORVASTATIN CALCIUM 20 MG TABLET PO SCH (20:45)
[2019-10-11 00:50] VITALS: BP 115/79
[2019-10-11 04:49] VITALS: BP 131/85
[2019-10-11] MEDS: MetroNIDAZOLE 500 MG/NACL 100 ML IV SCH (07:55)
[2019-10-11 07:57] VITALS: BP 111/74
[2019-10-11] MEDS: DOCUSATE SODIUM 100 MG CAPSULE PO SCH (08:01)
[2019-10-11] MEDS: ASPIRIN 81 MG CHEWABLE TABLET PO SCH (08:03)
[2019-10-11] MEDS: RisperiDONE 2 MG TABLET PO SCH (08:03)
[2019-10-11] MEDS: APIXABAN 5 MG TABLET PO SCH (08:03)
[2019-10-11] MEDS: LACTOBACILLUS ACIDOPHILUS/BULGARICUS GRANULES PACKET PO SCH (08:06)
[2019-10-11] MEDS ORDERED: FURO20 PO (09:20)
[2019-10-11] MEDS ORDERED: ATOR20TA65 PO (09:20)
[2019-10-11 11:38] LABS: BASOPHILS % (AUTO) 0.5 % (0.0-2.0); EOSINOPHILS % (AUTO) 2.4 % (1.0-6.0); HEMATOCRIT 37.8 % (41-53); HEMOGLOBIN 12.1 g/dL (13.5-17.5); LYMPHOCYTES # (AUTO) 1.1 K/uL (1.0-4.8); LYMPHOCYTES % (AUTO) 12.6 % (22.0-44.0); MEAN CORPUSCULAR HEMOGLOBIN 23.9 pg (26.0-34.0); MEAN CORPUSCULAR HGB CONC 31.9 G/dL (31.0-37.0); MEAN CORPUSCULAR VOLUME 75 fL (80-100); MONOCYTES % (AUTO) 11.5 % (2.0-9.0); NEUTROPHILS # (AUTO) 6.2 K/uL (1.8-7.7); PLATELET COUNT (AUTO) 232 K/uL (150-450); RED BLOOD CELL COUNT(AUTO) 5.05 MIL/uL (4.50-5.90); RED CELL DISTRIBUTION WIDTH 19.8 % (11.5-14.5)
[2019-10-11 11:56] VITALS: BP 95/64
[2019-10-11 11:56] LABS: ANION GAP 6 mmol/L (8-16); CALCIUM, TOTAL 8.6 mg/dL (8.8-10.5); CARBON DIOXIDE 28 mmol/L (22-29); CHLORIDE 104 mmol/L (98-107); CREATININE 0.79 mg/dL (0.60-1.30); GLOMERULAR FILTR. RATE CALC > 60 mL/min (>60); GLUCOSE,RANDOM 97 mg/dL (70-110); POTASSIUM 4.1 mmol/L (3.5-5.1); SODIUM SERUM 138 mmol/L (136-145); UREA NITROGEN, BLOOD 14 mg/dL (7-18)
== END 2019-10-11 15:00 | disposition home or self-care (01) | DRG 73 ==
LOC: EMS 19:13 → 5S 22:11
PROVIDERS: ADMIT Internal Medicine; ATTEND Internal Medicine
DX: G90.8 Other disorders of autonomic nervous system (principal); I50.41 Acute combined systolic (congestive) and diastolic (congestive) heart failure; E44.0 Moderate protein-calorie malnutrition; R55 Syncope and collapse; I65.23 Occlusion and stenosis of bilateral carotid arteries; I95.9 Hypotension, unspecified; R42 Dizziness and giddiness; R07.9 Chest pain, unspecified; E87.6 Hypokalemia; I11.0 Hypertensive heart disease with heart failure; Z68.28 Body mass index [BMI] 28.0-28.9, adult; F31.9 Bipolar disorder, unspecified; F20.9 Schizophrenia, unspecified; E78.00 Pure hypercholesterolemia, unspecified; I48.91 Unspecified atrial fibrillation; Z79.01 Long term (current) use of anticoagulants; I44.7 Left bundle-branch block, unspecified; M48.10 Ankylosing hyperostosis [Forestier], site unspecified; W18.30XA Fall on same level, unspecified, initial encounter; M47.812 Spondylosis without myelopathy or radiculopathy, cervical region
CPT/HCPCS: 70450; 72125; 76700; 84132; 87081; 93005; 93306; 93880; J1940; J2405; J3490; J7050

== ENCOUNTER 2019-11-03 17:13 | Inpatient (IN) | payer MEDICARE, OTHER ==
[~2019-11-03] VITALS: Ht 180.3 cm; Wt 94.1 kg
[~2019-11-03 17:13] MED LIST changes: +ATOR20TA65 PO; +FURO20 PO; -FURO40 PO; -LISI-660 PO
[2019-11-03] MEDS ORDERED: CARV3.1231 PO (18:06)
[2019-11-03] MEDS ORDERED: ASPIRIN 81 MG CHEWABLE TABLET PO ONE (18:15)
[2019-11-03 18:58] LABS: BASOPHILS % (AUTO) 1.3 % (0.0-2.0); EOSINOPHILS % (AUTO) 1.2 % (1.0-6.0); HEMATOCRIT 38.9 % (41-53); HEMOGLOBIN 12.2 g/dL (13.5-17.5); LYMPHOCYTES # (AUTO) 1.7 K/uL (1.0-4.8); LYMPHOCYTES % (AUTO) 20.7 % (22.0-44.0); MEAN CORPUSCULAR HEMOGLOBIN 23.8 pg (26.0-34.0); MEAN CORPUSCULAR HGB CONC 31.5 G/dL (31.0-37.0); MEAN CORPUSCULAR VOLUME 76 fL (80-100); MONOCYTES # (AUTO) 0.8 K/uL (0.1-1.0); MONOCYTES % (AUTO) 10.5 % (2.0-9.0); NEUTROPHILS # (AUTO) 5.3 K/uL (1.8-7.7); NEUTROPHILS % (AUTO) 66.3 % (40.0-70.0); PLATELET COUNT (AUTO) 364 K/uL (150-450); RED BLOOD CELL COUNT(AUTO) 5.15 MIL/uL (4.50-5.90); RED CELL DISTRIBUTION WIDTH 20.9 % (11.5-14.5)
[2019-11-03 19:08] LABS: ANION GAP 11 mmol/L (8-16); CALCIUM, TOTAL 8.6 mg/dL (8.8-10.5); CARBON DIOXIDE 23 mmol/L (22-29); CHLORIDE 106 mmol/L (98-107); CREATININE 1.05 mg/dL (0.60-1.30); GLOMERULAR FILTR. RATE CALC > 60 mL/min (>60); GLUCOSE,RANDOM 98 mg/dL (70-110); POTASSIUM 3.7 mmol/L (3.5-5.1); SODIUM SERUM 140 mmol/L (136-145); UREA NITROGEN, BLOOD 23 mg/dL (7-18)
[2019-11-03 19:18] LABS: INFLUENZA TYPE A NEGATIVE FOR TYPE A (NEGATIVE); INFLUENZA TYPE B NEGATIVE FOR TYPE B (NEGATIVE)
[2019-11-03 19:20] LABS: PLATELET MORPHOLOGY COMMENT GIANT PLTS PRESENT
[2019-11-03 19:25] LABS: ALANINE AMINOTRANSFERASE 15 U/L (12-78); ALBUMIN 3.4 g/dL (3.4-5.0); ALKALINE PHOSPHATASE 89 U/L (46-116); ASPARTATE AMINOTRANSFERASE 12 U/L (15-37); BILIRUBIN,TOTAL 0.5 mg/dL (0.1-1.0); CREATINE KINASE, TOTAL ONLY 55 U/L (39-308); TOTAL PROTEIN, SERUM 7.6 g/dL (6.4-8.2)
[2019-11-03 19:29] LABS: B-TYPE NATRIURETIC PEPTIDE 1610 pg/mL (0-100)
[2019-11-03] MEDS ORDERED: FUROSEMIDE 40 MG/4 ML VIAL IVP ONE (20:30)
[2019-11-03] MEDS ORDERED: 0.9% SODIUM CHLORIDE 10 ML SYRINGE IVP PRN (22:30)
[2019-11-03] MEDS ORDERED: ACETAMINOPHEN 325 MG TABLET PO PRN (22:30)
[2019-11-03] MEDS ORDERED: ONDANSETRON HCL 4 MG/2 ML VIAL IVP PRN (22:30)
[2019-11-03 23:41] VITALS: BP 131/93
[2019-11-04 04:32] VITALS: BP 133/95
[2019-11-04 06:28] LABS: EOSINOPHILS % (AUTO) 1.5 % (1.0-6.0); HEMATOCRIT 40.2 % (41-53); HEMOGLOBIN 12.7 g/dL (13.5-17.5); LYMPHOCYTES # (AUTO) 1.7 K/uL (1.0-4.8); LYMPHOCYTES % (AUTO) 23.3 % (22.0-44.0); MEAN CORPUSCULAR HEMOGLOBIN 24.1 pg (26.0-34.0); MEAN CORPUSCULAR HGB CONC 31.7 G/dL (31.0-37.0); MEAN CORPUSCULAR VOLUME 76 fL (80-100); NEUTROPHILS # (AUTO) 4.6 K/uL (1.8-7.7); NEUTROPHILS % (AUTO) 61.2 % (40.0-70.0); PLATELET COUNT (AUTO) 365 K/uL (150-450); RED BLOOD CELL COUNT(AUTO) 5.28 MIL/uL (4.50-5.90)
[2019-11-04 06:55] LABS: ANION GAP 13 mmol/L (8-16); CALCIUM, TOTAL 8.8 mg/dL (8.8-10.5); CARBON DIOXIDE 23 mmol/L (22-29); CHLORIDE 105 mmol/L (98-107); CREATININE 1.11 mg/dL (0.60-1.30); GLOMERULAR FILTR. RATE CALC > 60 mL/min (>60); GLUCOSE,RANDOM 102 mg/dL (70-110); POTASSIUM 3.3 mmol/L (3.5-5.1); SODIUM SERUM 141 mmol/L (136-145); UREA NITROGEN, BLOOD 25 mg/dL (7-18)
[2019-11-04 08:16] VITALS: BP 149/98
[2019-11-04] MEDS ORDERED: ZOLPIDEM TARTRATE 10 MG TABLET PO PRN (10:45)
[2019-11-04] MEDS ORDERED: MORPHINE SULFATE 2 MG/ML SYRINGE IVP PRN (10:45)
[2019-11-04] MEDS ORDERED: FUROSEMIDE 40 MG/4 ML VIAL IVP ONE (10:45)
[2019-11-04] MEDS ORDERED: ONDANSETRON HCL 4 MG/2 ML VIAL IVP PRN (10:45)
[2019-11-04] MEDS ORDERED: ACETAMINOPHEN 325 MG TABLET PO PRN (10:45)
[2019-11-04] MEDS ORDERED: MAGNESIUM HYDROXIDE SUSPENSION 30 ML UDCUP PO PRN (10:45)
[2019-11-04 12:10] VITALS: BP 159/99
[2019-11-04] MEDS: RisperiDONE 2 MG TABLET PO SCH (13:37)
[2019-11-04] MEDS: HYDROCODONE/ACETAMINOPHEN 5-325 MG TABLET PO PRN ×2 (13:37→18:27)
[2019-11-04] MEDS: CARVEDILOL 6.25 MG TABLET PO SCH ×2 (13:37→20:40)
[2019-11-04] MEDS: APIXABAN 5 MG TABLET PO SCH ×2 (13:37→20:41)
[2019-11-04] MEDS: NITROGLYCERIN 2% (1 GM=INCH) PACKET TP SCH ×2 (13:37→18:26)
[2019-11-04] MEDS: FAMOTIDINE 20 MG TABLET PO SCH ×2 (13:38→20:41)
[2019-11-04 16:01] VITALS: BP 132/92
[2019-11-04] MEDS ORDERED: IOVERSOL 320 MG/ML 100 ML VIAL ONE (20:03)
[2019-11-04] MEDS ORDERED: BARIUM SULFATE 0.1% SUSPENSION 450 ML BOTTLE ONE (20:03)
[2019-11-04] MEDS ORDERED: SODIUM CHLORIDE 0.9% 100 ML ONE (20:03)
[2019-11-04 20:30] VITALS: BP 123/95
[2019-11-04] MEDS: DOCUSATE SODIUM 100 MG CAPSULE PO SCH (20:40)
[2019-11-04] MEDS: FUROSEMIDE 40 MG TABLET PO SCH (20:41)
[2019-11-04] MEDS ORDERED: ATORVASTATIN CALCIUM 20 MG TABLET PO SCH (21:00)
[2019-11-05 00:35] VITALS: BP 110/71
[2019-11-05 05:12] VITALS: BP 102/74
[2019-11-05] MEDS: NITROGLYCERIN 2% (1 GM=INCH) PACKET TP SCH ×4 (06:00→17:47)
[2019-11-05 07:41] LABS: ANION GAP 12 mmol/L (8-16); CALCIUM, TOTAL 8.4 mg/dL (8.8-10.5); CARBON DIOXIDE 24 mmol/L (22-29); CHLORIDE 104 mmol/L (98-107); CHOLESTEROL 105 mg/dL (131-200); CREATININE 1.09 mg/dL (0.60-1.30); GLOMERULAR FILTR. RATE CALC > 60 mL/min (>60); GLUCOSE,RANDOM 84 mg/dL (70-110); HDL CHOLESTEROL 26 mg/dL (40-60); LDL CHOL (CALC.) 67 mg/dL (0-130); POTASSIUM 3.7 mmol/L (3.5-5.1); SODIUM SERUM 140 mmol/L (136-145); TRIGLYCERIDES 58 mg/dL (15-150); UREA NITROGEN, BLOOD 27 mg/dL (7-18)
[2019-11-05 08:29] VITALS: BP 128/91
[2019-11-05] MEDS: FAMOTIDINE 20 MG TABLET PO SCH (08:46)
[2019-11-05] MEDS: CARVEDILOL 6.25 MG TABLET PO SCH (08:46)
[2019-11-05] MEDS: APIXABAN 5 MG TABLET PO SCH (08:46)
[2019-11-05] MEDS: RisperiDONE 2 MG TABLET PO SCH (08:47)
[2019-11-05] MEDS: FUROSEMIDE 40 MG TABLET PO SCH (08:47)
[2019-11-05] MEDS: DOCUSATE SODIUM 100 MG CAPSULE PO SCH (08:51)
[2019-11-05] MEDS ORDERED: ASPIRIN 81 MG CHEWABLE TABLET PO SCH (09:00)
[2019-11-05] MEDS ORDERED: FUROSEMIDE 20 MG TABLET PO SCH (09:00)
[2019-11-05 11:35] VITALS: BP 122/82
[2019-11-05] MEDS: HYDROCODONE/ACETAMINOPHEN 5-325 MG TABLET PO PRN (14:54)
[2019-11-05 15:44] LABS: EOSINOPHILS % (AUTO) 3.3 % (1.0-6.0); HEMATOCRIT 39.1 % (41-53); HEMOGLOBIN 12.4 g/dL (13.5-17.5); LYMPHOCYTES # (AUTO) 1.3 K/uL (1.0-4.8); LYMPHOCYTES % (AUTO) 21.9 % (22.0-44.0); MEAN CORPUSCULAR HGB CONC 31.7 G/dL (31.0-37.0); MEAN CORPUSCULAR VOLUME 76 fL (80-100); MONOCYTES # (AUTO) 0.6 K/uL (0.1-1.0); MONOCYTES % (AUTO) 11.2 % (2.0-9.0); NEUTROPHILS # (AUTO) 3.6 K/uL (1.8-7.7); NEUTROPHILS % (AUTO) 62.6 % (40.0-70.0); PLATELET COUNT (AUTO) 344 K/uL (150-450); RED BLOOD CELL COUNT(AUTO) 5.17 MIL/uL (4.50-5.90); RED CELL DISTRIBUTION WIDTH 20.6 % (11.5-14.5)
[2019-11-05] MEDS ORDERED: ASPI-728 PO (15:55)
[2019-11-05] MEDS ORDERED: FURO40 PO (15:57)
[2019-11-05] MEDS ORDERED: ISOS30TA6 PO (15:59)
[2019-11-05] MEDS ORDERED: POTA8CAP20 PO (16:01)
[2019-11-05 16:03] LABS: CALCIUM, TOTAL 8.1 mg/dL (8.8-10.5); CREATININE 1.2 mg/dL (0.60-1.30); POTASSIUM 3.8 mmol/L (3.5-5.1)
[2019-11-05 16:06] LABS: ALBUMIN 3.5 g/dL (3.4-5.0); BILIRUBIN,TOTAL 0.6 mg/dL (0.1-1.0); TOTAL PROTEIN, SERUM 8.1 g/dL (6.4-8.2)
== END 2019-11-05 17:40 | disposition home or self-care (01) | DRG 293 ==
LOC: EMS 17:24 → 5N 22:30
PROVIDERS: ADMIT Hospitalist; ATTEND Hospitalist
DX: I11.0 Hypertensive heart disease with heart failure (principal); I50.23 Acute on chronic systolic (congestive) heart failure; E78.00 Pure hypercholesterolemia, unspecified; E87.6 Hypokalemia; Z20.828 Contact with and (suspected) exposure to other viral communicable diseases; F20.9 Schizophrenia, unspecified; F31.9 Bipolar disorder, unspecified; R19.7 Diarrhea, unspecified; I48.91 Unspecified atrial fibrillation; R32 Unspecified urinary incontinence; Z79.01 Long term (current) use of anticoagulants; Z82.49 Family history of ischemic heart disease and other diseases of the circulatory system; Z91.14 Patient's other noncompliance with medication regimen; Z95.810 Presence of automatic (implantable) cardiac defibrillator; Z79.899 Other long term (current) drug therapy
CPT/HCPCS: 74177; 87635; 87804; 93005; J1940; J2270; J7050

== ENCOUNTER 2019-11-24 23:46 | Inpatient (IN) | payer MEDICARE, OTHER ==
[~2019-11-24] VITALS: Ht 175.3 cm; Wt 99.2 kg
[~2019-11-24 23:46] MED LIST changes: +ASPI-728 PO; +CARV3 PO; +ISOS30TA6 PO; +POTA8CAP20 PO; +VALS40TA4 PO
[2019-11-25 03:37] LABS: BASOPHILS % (AUTO) 0.5 % (0.0-2.0); EOSINOPHILS % (AUTO) 1.1 % (1.0-6.0); HEMOGLOBIN 11.6 g/dL (13.5-17.5); LYMPHOCYTES # (AUTO) 1.5 K/uL (1.0-4.8); LYMPHOCYTES % (AUTO) 17.5 % (22.0-44.0); MEAN CORPUSCULAR HEMOGLOBIN 23.3 pg (26.0-34.0); MEAN CORPUSCULAR HGB CONC 31.3 G/dL (31.0-37.0); MEAN CORPUSCULAR VOLUME 74 fL (80-100); MONOCYTES # (AUTO) 1.1 K/uL (0.1-1.0); MONOCYTES % (AUTO) 12.9 % (2.0-9.0); NEUTROPHILS # (AUTO) 5.7 K/uL (1.8-7.7); PLATELET COUNT (AUTO) 309 K/uL (150-450); RED BLOOD CELL COUNT(AUTO) 4.98 MIL/uL (4.50-5.90); RED CELL DISTRIBUTION WIDTH 20.4 % (11.5-14.5)
[2019-11-25 03:47] LABS: ANION GAP 8 mmol/L (8-16); CALCIUM, TOTAL 8.3 mg/dL (8.8-10.5); CARBON DIOXIDE 26 mmol/L (22-29); CHLORIDE 104 mmol/L (98-107); CREATININE 1.14 mg/dL (0.60-1.30); GLOMERULAR FILTR. RATE CALC > 60 mL/min (>60); GLUCOSE,RANDOM 90 mg/dL (70-110); POTASSIUM 3.5 mmol/L (3.5-5.1); SODIUM SERUM 138 mmol/L (136-145); UREA NITROGEN, BLOOD 21 mg/dL (7-18)
[2019-11-25 03:53] LABS: ALANINE AMINOTRANSFERASE 186 U/L (12-78); ALBUMIN 3.3 g/dL (3.4-5.0); ALKALINE PHOSPHATASE 99 U/L (46-116); ASPARTATE AMINOTRANSFERASE 121 U/L (15-37); BILIRUBIN,TOTAL 1.3 mg/dL (0.1-1.0); TOTAL PROTEIN, SERUM 7.2 g/dL (6.4-8.2)
[2019-11-25] MEDS ORDERED: ACETAMINOPHEN 325 MG TABLET PO PRN ×2 (04:45→08:00)
[2019-11-25] MEDS ORDERED: ASPIRIN 325 MG TABLET PO ONE (04:45)
[2019-11-25] MEDS ORDERED: ONDANSETRON HCL 4 MG/2 ML VIAL IVP PRN (04:45)
[2019-11-25] MEDS ORDERED: FUROSEMIDE 40 MG/4 ML VIAL IVP ONE (04:45)
[2019-11-25] MEDS ORDERED: 0.9% SODIUM CHLORIDE 10 ML SYRINGE IVP PRN (04:45)
[2019-11-25 05:01] LABS: APPEARANCE,URINE CLOUDY (CLEAR); GLUCOSE, URINE (UA) NEGATIVE (NEGATIVE); KETONES,URINE NEGATIVE (NEGATIVE); LEUKOCYTE ESTERASE ,URINE NEGATIVE (NEGATIVE); NITRATE,URINE NEGATIVE (NEGATIVE); OCCULT BLOOD,URINE NEGATIVE (NEGATIVE); PH,URINE 5.5 (5.0-8.0); PROTEIN,URINE SEE CONFIRM (NEGATIVE); UROBILINOGEN,URINE 0.2 mg/dL (<=1.0)
[2019-11-25 05:02] LABS: BILIRUBIN,URINE PRELIM. POSITIVE (NEGATIVE)
[2019-11-25 05:16] LABS: BACTERIA,URINE Few /HPF (None Seen); RBC,URINE None Seen /HPF (0-2); WBC,URINE 0-2 /HPF (0-5); YEAST,URINE None Seen /HPF (None Seen)
[2019-11-25 05:17] LABS: SQUAMOUS EPITHELIAL CELL,UR Few /LPF (None Seen); SULFOSALICYLIC ACID,URINE 2+ (Negative)
[2019-11-25] MEDS: FAMOTIDINE 20 MG TABLET PO SCH (08:26)
[2019-11-25] MEDS: DOCUSATE SODIUM 100 MG CAPSULE PO SCH ×2 (08:26→20:30)
[2019-11-25 08:40] VITALS: BP 118/75
[2019-11-25] MEDS ORDERED: CARVEDILOL 3.125 MG TABLET PO SCH (09:00)
[2019-11-25] MEDS: APIXABAN 5 MG TABLET PO SCH ×2 (09:35→20:43)
[2019-11-25 10:44] VITALS: BP 138/92
[2019-11-25 15:25] VITALS: BP 118/77
[2019-11-25] MEDS ORDERED: DIGOXIN 250 MCG/ML 2 ML AMP IVP ONE ×3 (17:45→20:30)
[2019-11-25] MEDS: METOPROLOL SUCCINATE 50 MG ER TABLET PO SCH (18:30)
[2019-11-25 19:53] VITALS: BP 126/85
[2019-11-25] MEDS: OxyCODONE HCL/ACETAMINOPHEN 5-325 MG TABLET PO PRN (20:43)
[2019-11-25] MEDS ORDERED: ATORVASTATIN CALCIUM 20 MG TABLET PO SCH (21:00)
[2019-11-26] VITALS (7 sets, daily range): BP systolic 113–138; BP diastolic 67–86
[2019-11-26] MEDS ORDERED: FUROSEMIDE 40 MG/4 ML VIAL IVP SCH ×2 (06:00→21:00)
[2019-11-26 06:17] LABS: BASOPHILS % (AUTO) 0.9 % (0.0-2.0); EOSINOPHILS % (AUTO) 2.2 % (1.0-6.0); HEMATOCRIT 41.7 % (41-53); HEMOGLOBIN 12.5 g/dL (13.5-17.5); LYMPHOCYTES # (AUTO) 2.1 K/uL (1.0-4.8); LYMPHOCYTES % (AUTO) 20.4 % (22.0-44.0); MEAN CORPUSCULAR HEMOGLOBIN 22.7 pg (26.0-34.0); MEAN CORPUSCULAR HGB CONC 30.1 G/dL (31.0-37.0); MEAN CORPUSCULAR VOLUME 75 fL (80-100); MONOCYTES # (AUTO) 1.2 K/uL (0.1-1.0); MONOCYTES % (AUTO) 11.8 % (2.0-9.0); NEUTROPHILS # (AUTO) 6.6 K/uL (1.8-7.7); NEUTROPHILS % (AUTO) 64.7 % (40.0-70.0); PLATELET COUNT (AUTO) 322 K/uL (150-450); RED BLOOD CELL COUNT(AUTO) 5.54 MIL/uL (4.50-5.90); RED CELL DISTRIBUTION WIDTH 20.5 % (11.5-14.5)
[2019-11-26 06:56] LABS: ALANINE AMINOTRANSFERASE 177 U/L (12-78); ALBUMIN 3.3 g/dL (3.4-5.0); ALKALINE PHOSPHATASE 104 U/L (46-116); ANION GAP 12 mmol/L (8-16); BILIRUBIN,TOTAL 1.2 mg/dL (0.1-1.0); CALCIUM, TOTAL 8.5 mg/dL (8.8-10.5); CARBON DIOXIDE 21 mmol/L (22-29); CHLORIDE 104 mmol/L (98-107); CREATININE 1.17 mg/dL (0.60-1.30); GLOMERULAR FILTR. RATE CALC > 60 mL/min (>60); GLUCOSE,RANDOM 89 mg/dL (70-110); POTASSIUM 3.9 mmol/L (3.5-5.1); SODIUM SERUM 137 mmol/L (136-145); TOTAL PROTEIN, SERUM 7.3 g/dL (6.4-8.2); UREA NITROGEN, BLOOD 33 mg/dL (7-18)
[2019-11-26] MEDS: APIXABAN 5 MG TABLET PO SCH ×2 (09:02→21:04)
[2019-11-26] MEDS: DOCUSATE SODIUM 100 MG CAPSULE PO SCH ×2 (09:02→21:04)
[2019-11-26] MEDS: METOPROLOL SUCCINATE 50 MG ER TABLET PO SCH (09:03)
[2019-11-26] MEDS: ASPIRIN 81 MG CHEWABLE TABLET PO SCH (09:03)
[2019-11-26] MEDS: FAMOTIDINE 20 MG TABLET PO SCH (09:03)
[2019-11-26 09:19] LABS: ASPARTATE AMINOTRANSFERASE 103 U/L (15-37)
[2019-11-26] MEDS: ISOSORBIDE DINITRATE 5 MG TABLET PO SCH ×2 (12:39→21:05)
[2019-11-26] MEDS: OxyCODONE HCL/ACETAMINOPHEN 5-325 MG TABLET PO PRN (21:09)
[2019-11-27 04:05] VITALS: BP 131/98
[2019-11-27 06:57] LABS: BASOPHILS % (AUTO) 1.1 % (0.0-2.0); EOSINOPHILS % (AUTO) 1.6 % (1.0-6.0); HEMATOCRIT 39.6 % (41-53); HEMOGLOBIN 12.3 g/dL (13.5-17.5); LYMPHOCYTES # (AUTO) 1.8 K/uL (1.0-4.8); LYMPHOCYTES % (AUTO) 20.4 % (22.0-44.0); MEAN CORPUSCULAR HEMOGLOBIN 23.3 pg (26.0-34.0); MEAN CORPUSCULAR HGB CONC 31.1 G/dL (31.0-37.0); MEAN CORPUSCULAR VOLUME 75 fL (80-100); MONOCYTES # (AUTO) 1.3 K/uL (0.1-1.0); MONOCYTES % (AUTO) 15.4 % (2.0-9.0); NEUTROPHILS # (AUTO) 5.3 K/uL (1.8-7.7); NEUTROPHILS % (AUTO) 61.5 % (40.0-70.0); PLATELET COUNT (AUTO) 343 K/uL (150-450); RED BLOOD CELL COUNT(AUTO) 5.28 MIL/uL (4.50-5.90); RED CELL DISTRIBUTION WIDTH 20.4 % (11.5-14.5)
[2019-11-27 07:09] LABS: ALANINE AMINOTRANSFERASE 174 U/L (12-78); ALBUMIN 3.2 g/dL (3.4-5.0); ALKALINE PHOSPHATASE 104 U/L (46-116); ANION GAP 12 mmol/L (8-16); ASPARTATE AMINOTRANSFERASE 110 U/L (15-37); BILIRUBIN,TOTAL 1.1 mg/dL (0.1-1.0); CALCIUM, TOTAL 8.6 mg/dL (8.8-10.5); CARBON DIOXIDE 24 mmol/L (22-29); CHLORIDE 103 mmol/L (98-107); CREATININE 1.19 mg/dL (0.60-1.30); GLOMERULAR FILTR. RATE CALC > 60 mL/min (>60); GLUCOSE,RANDOM 73 mg/dL (70-110); SODIUM SERUM 139 mmol/L (136-145); TOTAL PROTEIN, SERUM 7.3 g/dL (6.4-8.2); UREA NITROGEN, BLOOD 41 mg/dL (7-18)
[2019-11-27 08:17] VITALS: BP 125/91
[2019-11-27] MEDS ORDERED: FUROSEMIDE 40 MG TABLET PO SCH (09:00)
[2019-11-27] MEDS: APIXABAN 5 MG TABLET PO SCH (09:36)
[2019-11-27] MEDS: METOPROLOL SUCCINATE 50 MG ER TABLET PO SCH (09:36)
[2019-11-27] MEDS: FAMOTIDINE 20 MG TABLET PO SCH (09:36)
[2019-11-27] MEDS: ISOSORBIDE DINITRATE 5 MG TABLET PO SCH (09:36)
[2019-11-27] MEDS: DOCUSATE SODIUM 100 MG CAPSULE PO SCH (09:36)
[2019-11-27] MEDS: ASPIRIN 81 MG CHEWABLE TABLET PO SCH (09:37)
[2019-11-27] MEDS ORDERED: DOCU-275 PO (11:22)
[2019-11-27] MEDS ORDERED: ASPI-556 PO (11:22)
[2019-11-27] MEDS ORDERED: FAMO20 PO (11:22)
[2019-11-27] MEDS ORDERED: FURO40 PO (11:23)
[2019-11-27] MEDS ORDERED: ISOS5TAB5 PO (11:23)
[2019-11-27] MEDS ORDERED: METO-558 PO (11:24)
[2019-11-27] MEDS ORDERED: ACET-784 PO (11:25)
[2019-11-27] MEDS ORDERED: ACET-66 PO (11:25)
[2019-11-27] MEDS ORDERED: OXYC-38 PO (11:27)
[2019-11-27 11:55] VITALS: BP 129/95
[2019-11-27] MEDS ORDERED: SPIRONOLACTONE 25 MG TABLET PO SCH (12:00)
[2019-11-27] MEDS ORDERED: SPIR25 PO (12:19)
[2019-11-27 16:27] VITALS: BP 130/97
== END 2019-11-27 19:23 | DRG 293 ==
LOC: EMS 23:46 → 5S 11-25 06:11
PROVIDERS: ADMIT Internal Medicine; ATTEND Internal Medicine
DX: I11.0 Hypertensive heart disease with heart failure (principal); I27.20 Pulmonary hypertension, unspecified; I07.1 Rheumatic tricuspid insufficiency; G31.84 Mild cognitive impairment of uncertain or unknown etiology; I48.0 Paroxysmal atrial fibrillation; Z79.01 Long term (current) use of anticoagulants; J44.9 Chronic obstructive pulmonary disease, unspecified; F31.9 Bipolar disorder, unspecified; E78.5 Hyperlipidemia, unspecified; E78.00 Pure hypercholesterolemia, unspecified; K75.9 Inflammatory liver disease, unspecified; K76.1 Chronic passive congestion of liver; F20.9 Schizophrenia, unspecified; I50.23 Acute on chronic systolic (congestive) heart failure; R74.0 Nonspecific elevation of levels of transaminase and lactic acid dehydrogenase [LDH]; Z82.49 Family history of ischemic heart disease and other diseases of the circulatory system; Z95.810 Presence of automatic (implantable) cardiac defibrillator
CPT/HCPCS: 83735; 87081; 93005; 97116; 97162; 97165; 97535; 99291; J1160; J1940